=== PATIENT | male | born 1960 | race African-American/Black ===

== ENCOUNTER 2017-01-27 21:13 | Emergency (ER) | payer MEDICAID ==
[~2017-01-27] VITALS: Ht 154.9 cm; Wt 76.7 kg
[~2017-01-27 21:13] MED LIST: CEPHALEXIN500 MG PO; IBUPROFEN800 MG ORAL; METHADOSE10 MG/1 ML PO; NORCO 5-325 TA1 EACH PO; RISPERDAL3 MG PO; RISPERIDONE1 MG PO
[2017-01-27 21:31] VITALS: BP 136/70
[2017-01-28 03:40] VITALS: BP 132/69
[2017-01-28 03:45] VITALS: BP 132/69
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
== END 2017-01-28 03:46 | disposition home or self-care (01) ==
LOC: EMR 22:16
DX: M54.9 Dorsalgia, unspecified (principal); I10 Essential (primary) hypertension
CPT/HCPCS: 99282